=== PATIENT | female | born 2000 | race Hispanic/Latino ===

== ENCOUNTER 2019-01-27 17:53 | Emergency (ER) | payer SELFPAY ==
--- NOTE | 2019-01-27 19:50 | ER ---
Nurse's Notes [facility] Name: Yaritza Rios Age: 18 yrs Sex: Female : 2000 Arrival Date: 01/27/2019 Time: 17:57 Bed 16 Private MD: Diagnosis: related conditions, unspecified, first trimester;Anxiety disorder, unspecified;Urinary tract infection, site not specified Presentation: 01/27 18:27 Presenting complaint: Patient states: i am very anxious, i have anxiety off and on, i tw2 have some congestion, and i have a headache and i am feeling nauseous, im 5 weeks also. Transition of care: patient was not received from another setting of care. Onset of symptoms was January 27, 2019. Risk Assessment: Do you want to hurt yourself or someone else? Patient reports no desire to harm self or others. Initial Sepsis Screen: Does the patient meet any 2 criteria? No. Patient's initial sepsis screen is negative. Does the patient have a suspected source of infection? No. Patient's initial sepsis screen is negative. Care prior to arrival: None. 18:27 Method Of Arrival: Ambulatory tw2 18:27 Acuity: SEGUNDO 3 tw2 Triage Assessment: 18:30 General: Appears in no apparent distress. Behavior is anxious. Pain: Denies pain. GI: tw2 Reports nausea. 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 - Social history:: Smoking status: . - Ebola Screening: : Patient denies travel to an Ebola-affected area in the 21 days before illness onset. - Family history:: not pertinent. Screenin:00 Abuse screen: Denies threats or abuse. Nutritional screening: No deficits noted. jb4 Tuberculosis screening: No symptoms or risk factors identified. Fall Risk None identified. Assessment: 19:00 General: Appears in no apparent distress. uncomfortable, Behavior is cooperative, jb4 anxious. Pain: Denies pain. Neuro: Level of Consciousness is awake, alert, obeys commands, Oriented to person, place, time, situation. Cardiovascular: Patient's skin is warm and dry. Respiratory: Airway is patent Respiratory effort is even, unlabored, Respiratory pattern is regular, symmetrical. GI: No deficits noted. No signs and/or symptoms were reported involving the gastrointestinal system. : No deficits noted. No signs and/or symptoms were reported regarding the genitourinary system. EENT: No deficits noted. No signs and/or symptoms were reported regarding the EENT system. Derm: Skin is intact, Skin is pink, warm \T\ dry. Musculoskeletal: Circulation, motion, and sensation intact. Range of motion:. 20:00 Reassessment: Patient appears in no apparent distress at this time. Patient and/or jb4 family updated on plan of care and expected duration. Pain level reassessed. Patient is alert, oriented x 3, equal unlabored respirations, skin warm/dry/pink. Vital Signs: 18:29 BP 107 / 88; Pulse 80; Resp 18; Temp 98.0(TE); Pulse Ox 100% on R/A; Weight 70.31 kg tw2 (R); Pain 0/10; 19:19 BP 125 / 76; Pulse 84; Resp 16; Pulse Ox 100% on R/A; jb4 20:00 BP 122 / 70; Pulse 80; Resp 16; Pulse Ox 99% on R/A; jb4 ED Course: 17:57 Patient arrived in ED. mr 18:29 Triage completed. tw2 18:29 Arm band placed on. tw2 18:33 Ophelia Cervantes, RN is Primary Nurse. jl7 19:00 Patient has correct armband on for positive identification. Bed in low position. Call jb4 light in reach. Side rails up X 1. Pulse ox on. NIBP on. 19:03 Bola Garcia MD is Attending Physician. woo 19:47 Trevor Huffman MD is Referral Physician. [facility] 20:11 No provider procedures requiring assistance completed. Patient did not have IV access jb4 during this emergency room visit. Administered Medications: 19:54 Drug: Benadryl 25 mg Route: PO; 20:12 Follow up: Response: No adverse reaction; Marked relief of symptoms jb4 Outcome: 19:49 Discharge ordered by . woo 20:11 Discharged to home ambulatory, with family. jb 20:11 Condition: stable 20:11 Discharge instructions given to patient, Instructed on discharge instructions, follow up and referral plans. medication usage, Demonstrated understanding of instructions, follow-up care, medications, Prescriptions given X 3. 20:12 Patient left the ED. jb4 Signatures: Bola Garcia MD MD cha Rivera, Mary mr Cain Vivian, RN RN tw2 Ramone Jeronimo, RN RN jb4 Ophelia Cervantes RN RN jl7 Juan Lewis Corrections: (The following items were deleted from the chart) 18:30 18:27 Presenting complaint: Patient states: i am very anxious, i have anxiety off and tw2 on, i have some congestion, and i have a headache and i am feeling nauseous tw2
--- NOTE | 2019-01-27 19:50 | EDPHYS ---
Physician Documentation [facility] Name: Yaritza Rios Age: 18 yrs Sex: Female : 2000 Arrival Date: 01/27/2019 Time: 17:57 Bed 16 Private MD: ED Physician Bola Garcai HPI: 01/27 19:43 This 18 yrs old Female presents to ER via Ambulatory with complaints of 5 wks woo , Anxiety. 19:43 The patient presents to the emergency department with anxiety. Onset: The woo symptoms/episode began/occurred 5 day(s) ago. Past psychiatric history: Prior diagnosis: no previous psychiatric diagnosis known. 5 week , anxious. . Associated signs and symptoms: The patient has no apparent associated signs or symptoms. Severity of symptoms: At their worst the symptoms were mild in the emergency department the symptoms are unchanged. The patient has experienced similar episodes in the past, a few times. 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 - Social history:: Smoking status: . - Ebola Screening: : Patient denies travel to an Ebola-affected area in the 21 days before illness onset. - Family history:: not pertinent. ROS: 19:43 Constitutional: Negative for fever, chills, and weight loss, Eyes: Negative for injury, woo pain, redness, and discharge, ENT: Negative for injury, pain, and discharge, Neck: Negative for injury, pain, and swelling, Cardiovascular: Negative for chest pain, palpitations, and edema, Respiratory: Negative for shortness of breath, cough, wheezing, and pleuritic chest pain, Abdomen/GI: Negative for abdominal pain, nausea, vomiting, diarrhea, and constipation, Back: Negative for injury and pain, : Negative for injury, bleeding, discharge, and swelling, MS/Extremity: Negative for injury and deformity, Skin: Negative for injury, rash, and discoloration, Neuro: Negative for headache, weakness, numbness, tingling, and seizure, Allergy/Immunology: Negative for hives, rash, and allergies, Endocrine: Negative for neck swelling, polydipsia, polyuria, polyphagia, and marked weight changes, Hematologic/Lymphatic: Negative for swollen nodes, abnormal bleeding, and unusual bruising. 19:43 Psych: Positive for anxiety. Exam: 19:43 Constitutional: This is a well developed, well nourished patient who is awake, alert, woo and in no acute distress. Head/Face: Normocephalic, atraumatic. Eyes: Pupils equal round and reactive to light, extra-ocular motions intact. Lids and lashes normal. Conjunctiva and sclera are non-icteric and not injected. Cornea within normal limits. Periorbital areas with no swelling, redness, or edema. ENT: Nares patent. No nasal discharge, no septal abnormalities noted. Tympanic membranes are normal and external auditory canals are clear. Oropharynx with no redness, swelling, or masses, exudates, or evidence of obstruction, uvula midline. Mucous membranes moist. Neck: Trachea midline, no thyromegaly or masses palpated, and no cervical lymphadenopathy. Supple, full range of motion without nuchal rigidity, or vertebral point tenderness. No Meningismus. Chest/axilla: Normal chest wall appearance and motion. Nontender with no deformity. No lesions are appreciated. Cardiovascular: Regular rate and rhythm with a normal S1 and S2. No gallops, murmurs, or rubs. Normal PMI, no JVD. No pulse deficits. Respiratory: Lungs have equal breath sounds bilaterally, clear to auscultation and percussion. No rales, rhonchi or wheezes noted. No increased work of breathing, no retractions or nasal flaring. Abdomen/GI: Soft, non-tender, with normal bowel sounds. No distension or tympany. No guarding or rebound. No evidence of tenderness throughout. Back: No spinal tenderness. No costovertebral tenderness. Full range of motion. Skin: Warm, dry with normal turgor. Normal color with no rashes, no lesions, and no evidence of cellulitis. MS/ Extremity: Pulses equal, no cyanosis. Neurovascular intact. Full, normal range of motion. Neuro: Awake and alert, GCS 15, oriented to person, place, time, and situation. Cranial nerves II-XII grossly intact. Motor strength 5/5 in all extremities. Sensory grossly intact. Cerebellar exam normal. Normal gait. 19:43 Psych: Behavior/mood is anxious, Affect is calm, Oriented to person, place, time, Patient has no thoughts/intents to harm self or others. Judgement / Insight is normal. Memory is normal. Delusions/hallucinations are not present. Vital Signs: 18:29 BP 107 / 88; Pulse 80; Resp 18; Temp 98.0(TE); Pulse Ox 100% on R/A; Weight 70.31 kg tw2 (R); Pain 0/10; 19:19 BP 125 / 76; Pulse 84; Resp 16; Pulse Ox 100% on R/A; jb4 20:00 BP 122 / 70; Pulse 80; Resp 16; Pulse Ox 99% on R/A; jb4 MDM: 19:03 Patient medically screened. [facility] 19:46 Data reviewed: vital signs, nurses notes, lab test result(s), urinalysis. [facility] 01/27 19:46 Order name: Urine Dipstick--Ancillary (enter results) [facility] 01/27 19:46 Order name: Urine --Ancillary (enter results) [facility] 01/27 19:34 Order name: Urine Dipstick-Ancillary (obtain specimen); Complete Time: 19:44 [facility] 01/27 19:34 Order name: Urine Test (obtain specimen); Complete Time: 19:44 [facility] Administered Medications: 19:54 Drug: Benadryl 25 mg Route: PO; 20:12 Follow up: Response: No adverse reaction; Marked relief of symptoms 4 Disposition: 01/27/19 19:49 Discharged to Home. Impression: related conditions, unspecified, first trimester, Anxiety disorder, unspecified, Urinary tract infection, site not specified. - Condition is Stable. - Discharge Instructions: Panic Attacks, First Trimester of , [id number], First Trimester of , Panic Attacks, [id number], Pelvic Rest. - Prescriptions for Benadryl 25 mg Oral Capsule - take 1 capsule by ORAL route every 6 hours As needed; 30 tablet. Vitamin 27- 0.8 mg Oral Tablet - take 1 tablet by ORAL route once daily; 30 tablet. Macrobid 100 mg Oral Capsule - take 1 capsule by ORAL route every 12 hours for 7 days; 14 capsule. - Medication Reconciliation Form, Thank You Letter, Antibiotic Education, Prescription Opioid Use form. - Follow up: Private Physician; When: 2 - 3 days; Reason: Recheck today's complaints, Continuance of care, Re-evaluation by your physician. Follow up: Trevor Huffman MD; When: 2 - 3 days; Reason: Recheck today's complaints, Continuance of care, Re-evaluation by your physician. - Problem is new. - Symptoms have improved. Signatures: Dispatcher [employer] EDMS Bola Gacria MD MD cha Wise, Tara RN RN tw2 Ramone Jeronimo RN RN jb4 Juan Lewis Corrections: (The following items were deleted from the chart) 19:50 19:49 01/27/2019 19:49 Discharged to Home. Impression: related conditions, woo unspecified, first trimester; Anxiety disorder, unspecified. Condition is Stable. Forms are Medication Reconciliation Form, Thank You Letter, Antibiotic Education, Prescription Opioid Use. Follow up: Private Physician; When: 2 - 3 days; Reason: Recheck today's complaints, Continuance of care, Re-evaluation by your physician. Follow up: Trevor Huffman; When: 2 - 3 days; Reason: Recheck today's complaints, Continuance of care, Re-evaluation by your physician. Problem is new. Symptoms have improved. woo 20:12 19:50 01/27/2019 19:49 Discharged to Home. Impression: related conditions, jb4 unspecified, first trimester; Anxiety disorder, unspecified; Urinary tract infection, site not specified. Condition is Stable. Discharge Instructions: Panic Attacks, First Trimester of , [id number], First Trimester of , Panic Attacks, [id number], Pelvic Rest. Prescriptions for Benadryl 25 mg Oral Capsule - take 1 capsule by ORAL route every 6 hours As needed; 30 tablet, Vitamin 27-0.8 mg Oral Tablet - take 1 tablet by ORAL route once daily; 30 tablet, Macrobid 100 mg Oral Capsule - take 1 capsule by ORAL route every 12 hours for 7 days; 14 capsule. and Forms are Medication Reconciliation Form, Thank You Letter, Antibiotic Education, Prescription Opioid Use. Follow up: Private Physician; When: 2 - 3 days; Reason: Recheck today's complaints, Continuance of care, Re-evaluation by your physician. Follow up: Trevor Huffman; When: 2 - 3 days; Reason: Recheck today's complaints, Continuance of care, Re-evaluation by your physician. Problem is new. Symptoms have improved. woo
[2019-01-27 19:51] LABS: Urine Blood NEGATIVE (NEG); Urine Glucose NEGATIVE (NEG); Urine Protein NEGATIVE (NEG); Urine Specific Gravity >1.030 (1.005-1.030); Urine pH 5.5 (5.0-7.0)
[2019-01-27] MEDS ORDERED: DIPHENHYDRAMINE 25 MG TAB/CAP ONE (19:52)
[2019-01-27 21:14] VITALS: TEMP 98
[2019-01-27 21:16] VITALS: BP 122/70; O2SAT 99
== END 2019-01-27 20:12 | disposition home or self-care (01) ==
LOC: ER 17:53
DX: F41.9 Anxiety disorder, unspecified (principal); O23.41 Unspecified infection of urinary tract in pregnancy, first trimester; Z3A.01 Less than 8 weeks gestation of pregnancy
CPT/HCPCS: 81003; 81025; 99283

== ENCOUNTER 2019-02-27 22:39 | Emergency (ER) | payer OTHER ==
--- OUTSIDE RECORDS SUMMARY | 2019-02-27 22:42 | XMS REPORT ---
:2000 [facility] Address [address] [place] [id number] Care Team Providers Name Role Phone Unavailable Unavailable Unavailable Problems This patient has no known problems. Allergies, Adverse Reactions, Alerts This patient has no known allergies or adverse reactions. Medications This patient has no known medications.
[2019-02-27] MEDS ORDERED: METOCLOPRAMIDE 10 MG/2mL INJ ONE (23:36)
[2019-02-27] MEDS ORDERED: DIPHENHYDRAMINE 50 MG/ML VIAL ONE (23:36)
[2019-02-27] MEDS ORDERED: NA CHLORIDE 0.9% 1,000 ML ONE (23:36)
[2019-02-27 23:55] LABS: Absolute Lymphocytes (CBC) 1.2 K/uL (0.7-4.9); Basophils % 0.3 % (0-1.3); Hematocrit 39.7 % (36.0-45.0); Lymphocytes % 12.6 % (15.3-44.8); MPV 8.3 fL (7.6-11.3); RBC Red Blood Cell Count 4.26 M/uL (3.86-4.86)
[2019-02-28 00:12] LABS: ALT/SGPT 17 U/L (12-78); AST/SGOT 14 U/L (15-37); Albumin 3.7 g/dL (3.4-5.0); Alkaline Phosphatase 53 U/L (45-117); BUN Blood Urea Nitrogen 11 mg/dL (7-18); Bicarbonate 21 mmol/L (21-32); Bilirubin Direct 0.2 mg/dL (0-0.2); Bilirubin Total 0.6 mg/dL (0.2-1.0); Glucose Level 79 mg/dL (74-106); Lipase 126 U/L (73-393); Potassium 3.5 mmol/L (3.5-5.1); Protein, Total 7.3 g/dL (6.4-8.2); Sodium Level 138 mmol/L (136-145)
--- NOTE | 2019-02-28 01:13 | EDPHYS ---
Physician Documentation [facility] Name: Yaritza Rios Age: 18 yrs Sex: Female : 2000 Arrival Date: 02/27/2019 Time: 22:43 Bed 17 Private MD: ED Physician Michele Frey HPI: 02/27 23:32 This 18 yrs old Female presents to ER via Ambulatory with complaints of jmm Depression, Decreased Appetite, 7 WKS PREG. 23:32 The patient presents to the emergency department with nausea, vomiting. Onset: The jmm symptoms/episode began/occurred gradually, 6 week(s) ago. Possible causes: . The symptoms are aggravated by nothing. The symptoms are alleviated by nothing. This is a 18 year old female that presents to the ED with complaints of ongoing nausea and vomiting. Patient states her OB prescribed her an antiemetic which has not provided any relief. Evaluated in the ED 1 month ago and prescribed abx for UTI. . 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 - Social history:: Smoking status: Patient/guardian denies using tobacco. - Ebola Screening: : Patient negative for fever greater than or equal to 101.5 degrees Fahrenheit, and additional compatible Ebola Virus Disease symptoms. ROS: 23:32 Constitutional: Negative for fever, chills, and weight loss, Cardiovascular: Negative jmm for chest pain, palpitations, and edema, Respiratory: Negative for shortness of breath, cough, wheezing, and pleuritic chest pain. 23:32 Abdomen/GI: Positive for nausea and vomiting, Negative for abdominal pain. 23:32 : Negative for vaginal bleeding. 23:32 All other systems are negative. Exam: 23:32 Constitutional: This is a well developed, well nourished patient who is awake, alert, jmm and in no acute distress. Head/Face: atraumatic. Eyes: EOMI, no conjunctival erythema appreciated ENT: Moist Mucus Membranes Neck: Trachea midline, Supple Chest/axilla: Normal chest wall appearance and motion. Cardiovascular: Regular rate and rhythm. No edema appreciated Respiratory: Normal respirations, no respiratory distress appreciated 23:32 Back: Normal ROM Skin: General appearance color normal MS/ Extremity: Moves all extremities, no obvious deformities appreciated, no edema noted to the lower extremities Neuro: Awake and alert, normal gait Psych: Behavior is normal, Mood is normal, Patient is cooperative and pleasant 23:32 Abdomen/GI: Inspection: abdomen appears normal, Bowel sounds: normal, Palpation: abdomen is soft and non-tender, in all quadrants. Vital Signs: 22:58 BP 120 / 90; Pulse 84; Resp 16; Temp 97.8; Pulse Ox 100% on R/A; Weight 65.77 kg; aa1 Height 5 ft. 7 in. (170.18 cm); Pain 08/22; 02/28 00:29 BP 91 / 61; Pulse 66; Resp 18 S; Pulse Ox 100% on R/A; jd3 01:15 BP 110 / 78; Pulse 60; Resp 18; Pulse Ox 99% ; ea 02/27 22:58 Body Mass Index 22.71 (65.77 kg, 170.18 cm) aa1 MDM: 02/27 23:24 Patient medically screened. [facility] 02/28 01:11 Data reviewed: vital signs, nurses notes. Counseling: I had a detailed discussion with [facility] the patient and/or guardian regarding: the historical points, exam findings, and any diagnostic results supporting the discharge/admit diagnosis, lab results, radiology results, the need for outpatient follow up, to return to the emergency department if symptoms worsen or persist or if there are any questions or concerns that arise at home. ED course: Patient states feeling much better. Abdomen soft and non tender. Patient advised to follow up with pcp and otherwise given strict return precautions. Patient understood and agrees with the plan of care. . 02/27 23:31 Order name: Basic Metabolic Panel; Complete Time: 00:15 [facility] 02/27 23:31 Order name: CBC with Diff; Complete Time: 23:57 [facility] 02/27 23:31 Order name: Creatinine for Radiology; Complete Time: 00:11 [facility] 02/27 23:31 Order name: Hepatic Function; Complete Time: 00:15 [facility] 02/27 23:31 Order name: Lipase; Complete Time: 00:15 [facility] 02/28 00:56 Order name: Urine Dipstick--Ancillary (enter results) [facility] 02/27 23:31 Order name: IV Saline Lock; Complete Time: 23:45 [facility] 02/27 23:31 Order name: Labs collected and sent; Complete Time: 23:45 [facility] 02/28 00:56 Order name: Urine --Ancillary (enter results) [facility] Administered Medications: 02/27 23:45 Drug: NS 0.9% 1000 ml Route: IV; Rate: 1 bolus; Site: right antecubital; 02/28 01:52 Follow up: Response: No adverse reaction; IV Status: Completed infusion; IV Intake: ea 1000ml 02/27 23:47 Drug: Reglan 10 mg Route: IVP; Site: right antecubital; [facility] 02/28 01:52 Follow up: Response: No adverse reaction 02/27 23:48 Drug: diphenhydrAMINE 12.5 mg Route: IVP; Site: right antecubital; [facility] 02/28 01:52 Follow up: Response: No adverse reaction Disposition: 02/28/19 01:12 Discharged to Home. Impression: Vomiting of , unspecified. - Condition is Stable. - Discharge Instructions: Hyperemesis Gravidarum, Morning Sickness, [id number]. - Prescriptions for Reglan 10 mg Oral Tablet - take 1 tablet by ORAL route every 6 hours take 30 minutes before meals and at bedtime; 20 tablet. - Medication Reconciliation Form, Thank You Letter, Antibiotic Education, Prescription Opioid Use form. - Follow up: Private Physician; When: 2 - 3 days; Reason: Recheck today's complaints, Continuance of care, Re-evaluation by your physician. Addendum: 03/02/2019 21:56 Co-signature as Attending Physician, Michele Frey MD I agree with the assessment and t w4 plan of care. Signatures: Dispatcher [employer] Airam Perez RN RN aa1 Rogelio Espinoza PA PA jmm Antunez, Elena, RN RN ea Davies, Jonathon, RN RN jd3 Wadley, Terrence, MD MD tw4 Corrections: (The following items were deleted from the chart) 02/28 01:55 01:12 02/28/2019 01:12 Discharged to Home. Impression: Vomiting of , ea unspecified. Condition is Stable. Forms are Medication Reconciliation Form, Thank You Letter, Antibiotic Education, Prescription Opioid Use. Follow up: Private Physician; When: 2 - 3 days; Reason: Recheck today's complaints, Continuance of care, Re-evaluation by your physician. [place]
--- NOTE | 2019-02-28 01:13 | ER ---
Nurse's Notes [facility] Name: Yaritza Rios Age: 18 yrs Sex: Female : 2000 Arrival Date: 02/27/2019 Time: 22:43 Bed 17 Private MD: Diagnosis: Vomiting of , unspecified Presentation: 02/27 22:56 Presenting complaint: Patient states: she is 7 weeks and for the past 3 days aa1 she has not been able to eat bc she has had no appetite and she has been vomiting and feeling depressed. Transition of care: patient was not received from another setting of care. Onset of symptoms was February 25, 2019. Initial Sepsis Screen: Does the patient meet any 2 criteria? No. Patient's initial sepsis screen is negative. Does the patient have a suspected source of infection? No. Patient's initial sepsis screen is negative. Care prior to arrival: None. 22:56 Method Of Arrival: Ambulatory aa1 22:56 Acuity: [id number] 3 aa1 23:20 Risk Assessment: Do you want to hurt yourself or someone else? Patient reports no jd3 desire to harm self or others. Triage Assessment: 22:58 General: Appears in no apparent distress. comfortable, Behavior is calm, cooperative, aa1 appropriate for age. 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 - Social history:: Smoking status: Patient/guardian denies using tobacco. - Ebola Screening: : Patient negative for fever greater than or equal to 101.5 degrees Fahrenheit, and additional compatible Ebola Virus Disease symptoms. Screenin:23 Abuse screen: Denies threats or abuse. Nutritional screening: No deficits noted. jd3 Tuberculosis screening: No symptoms or risk factors identified. Fall Risk Ambulatory Aid- None/Bed Rest/Nurse Assist (0 pts). Gait- Normal/Bed Rest/Wheelchair (0 pts) Mental Status- Oriented to own ability (0 pts). Total Elkins Fall Scale indicates No Risk (0-24 pts). Assessment: 23:21 General: Appears in no apparent distress. uncomfortable, Behavior is calm, cooperative, jd3 appropriate for age, Reports having stress and lack of appetite. Pain: Complains of pain in suprapubic area Quality of pain is described as aching, pressure. Neuro: Level of Consciousness is awake, alert, obeys commands, Oriented to person, place, time, situation. Cardiovascular: Denies chest pain, Capillary refill < 3 seconds Patient's skin is warm and dry. Respiratory: Airway is patent Respiratory effort is even, unlabored, Respiratory pattern is regular, symmetrical, Denies cough, shortness of breath. GI: Abdomen is round non-distended, Bowel sounds present X 4 quads. Abd is soft and non tender X 4 quads. Reports lower abdominal pain, nausea. : No signs and/or symptoms were reported regarding the genitourinary system. EENT: No signs and/or symptoms were reported regarding the EENT system. Derm: Skin is intact, Skin is dry, Skin is normal, Skin temperature is warm. Musculoskeletal: Circulation, motion, and sensation intact. Range of motion: intact in all extremities. 02/28 00:29 Reassessment: Patient appears in no apparent distress at this time. Patient and/or jd3 family updated on plan of care and expected duration. Pain level reassessed. Patient is alert, oriented x 3, equal unlabored respirations, skin warm/dry/pink. 01:53 Reassessment: Patient and/or family updated on plan of care and expected duration. Pain ea level reassessed. Patient is alert, oriented x 3, equal unlabored respirations, skin warm/dry/pink. Discharge instruction given to patient, verbalized the understanding of instruction. Pt left ED ambulatory accompanied by family. Pt tolerating well. Vital Signs: 02/27 22:58 BP 120 / 90; Pulse 84; Resp 16; Temp 97.8; Pulse Ox 100% on R/A; Weight 65.77 kg; aa1 Height 5 ft. 7 in. (170.18 cm); Pain 08/22; 02/28 00:29 BP 91 / 61; Pulse 66; Resp 18 S; Pulse Ox 100% on R/A; jd3 01:15 BP 110 / 78; Pulse 60; Resp 18; Pulse Ox 99% ; ea 02/27 22:58 Body Mass Index 22.71 (65.77 kg, 170.18 cm) aa1 ED Course: 02/27 22:43 Patient arrived in ED. es 22:57 Triage completed. aa1 22:58 Arm band placed on right wrist. Patient placed in an exam room, on a stretcher. aa1 23:09 Rogelio Espinoza PA is PHCP. [facility] 23:09 Michele Frey MD is Attending Physician. [facility] 23:10 Tomas Johnson RN is Primary Nurse. jd3 23:23 Patient has correct armband on for positive identification. Bed in low position. Call j light in reach. Side rails up X 1. Adult w/ patient. 23:40 Inserted saline lock: 20 gauge in right antecubital area, using aseptic technique. ea Blood collected. 02/28 01:51 No provider procedures requiring assistance completed. IV discontinued, intact, ea bleeding controlled, No redness/swelling at site. Pressure dressing applied. Administered Medications: 02/27 23:45 Drug: NS 0.9% 1000 ml Route: IV; Rate: 1 bolus; Site: right antecubital; ea 02/28 01:52 Follow up: Response: No adverse reaction; IV Status: Completed infusion; IV Intake: ea 1000ml 02/27 23:47 Drug: Reglan 10 mg Route: IVP; Site: right antecubital; [facility] 02/28 01:52 Follow up: Response: No adverse reaction 02/27 23:48 Drug: diphenhydrAMINE 12.5 mg Route: IVP; Site: right antecubital; [facility] 02/28 01:52 Follow up: Response: No adverse reaction ea Intake: 01:52 IV: 1000ml; Total: 1000ml. ea Outcome: 01:12 Discharge ordered by . [place] 01:51 Discharged to home ambulatory, with family. ea 01:51 Condition: stable 01:51 Discharge instructions given to patient, Instructed on discharge instructions, follow up and referral plans. medication usage, Demonstrated understanding of instructions, follow-up care, medications, Prescriptions given X 1. 01:55 Patient left the ED. ea Signatures: Airam Chawla RN RN aa Rogelio Espinoza PA PA Ines Clayton Elena, RN RN ea Davies, Jonathon, RN RN jd3
[2019-02-28 01:56] LABS: Urine Blood NEGATIVE (NEG); Urine Glucose NEGATIVE (NEG); Urine Protein 1+ (NEG); Urine Specific Gravity >1.030 (1.005-1.030)
[2019-02-28 03:16] VITALS: TEMP 97.8
[2019-02-28 03:18] VITALS: BP 110/78; O2SAT 99
== END 2019-02-28 01:55 | disposition home or self-care (01) ==
LOC: ER 22:39
DX: O21.9 Vomiting of pregnancy, unspecified (principal); Z3A.01 Less than 8 weeks gestation of pregnancy
CPT/HCPCS: 96361; 85025; 80048; 36415; 81025; 80076; 81003; 83690; 96375; 96374; 99284; J2765; J1200; J7030